=== PATIENT | female | born 1990 | race Caucasian/White ===

== ENCOUNTER 2023-06-30 22:14 | Emergency (ER) | payer SELFPAY ==
[2023-06-30] MEDS ORDERED: NA CHLORIDE 0.9% 1,000 ML ONE (22:29)
[2023-06-30] MEDS ORDERED: ONDANSETRON 4 MG/2 ML VIAL ONE ×2 (22:29→23:17)
[2023-06-30 22:33] LABS: Absolute Eosinophils 0.1 K/uL (0-0.5); Absolute Lymphocytes (CBC) 2.7 K/uL (0.7-4.9); Absolute Monocytes 0.4 K/uL (0.1-1.3); Absolute Neutrophil 6.1 K/uL (1.8-8.0); Basophils % 0.5 % (0-1.3); Eosinophils % 1.1 % (0-4.4); Hematocrit 39.8 % (36.0-45.0); Hemoglobin 13.3 g/dL (12.0-15.0); Lymphocytes % 28.6 % (15.3-44.8); MCHC 33.3 g/dL (32.0-36.0); MPV 9.8 fL (7.6-11.3); Monocytes % 4.5 % (3.3-12.3); Neutrophils % 65.3 % (41.7-73.7); Platelets 261 thou/uL (152-406); RBC Red Blood Cell Count 4.43 M/uL (3.86-4.86); Red Cell Distribution Width 13.2 % (12.1-15.2)
[2023-06-30 22:44] LABS: PT Prothrombin Time 11.6 SECONDS (9.5-12.5); PTT, Activated Partial Thromb 28.7 SECONDS (24.3-36.9); Protime INR 1.06
[2023-06-30 22:52] LABS: ALT/SGPT 21 U/L (13-56); AST/SGOT 14 U/L (15-37); Albumin/Globulin Ratio 1.1 (1.1-1.8); Alkaline Phosphatase 71 U/L (45-117); Anion Gap 10.3 mEq/L (5.0-15.0); BUN Blood Urea Nitrogen 10 mg/dL (7-18); Bicarbonate 24 mEq/L (21-32); Bilirubin Direct < 0.2 mg/dL (0-0.2); Bilirubin Indirect, Calculated 0.1 mg/dL (0.2-0.8); Bilirubin Total 0.3 mg/dL (0.2-1.0); Globulin 3.6 g/dL (2.3-3.5); Glomerular Filtration Rate 83 ml/min (=/>90); Glucose Level 124 mg/dL (74-106); Potassium 3.3 mEq/L (3.5-5.1); Protein, Total 7.6 g/dL (6.4-8.2); Sodium Level 140 mEq/L (136-145)
[2023-07-01 02:56] LABS: Specific Gravity 1.008 (1.005-1.030); Sqamous Epithelial <5 /HPF (None Seen); Urine Bacteria None Seen /HPF (<20); Urine Bilirubin NEGATIVE (Negative); Urine Blood Negative (Negative); Urine Clarity Turbid (Clear); Urine Color Colorless (Yellow); Urine Culture Reflex Order NOT NEEDED; Urine Glucose NEGATIVE (Negative); Urine Ketones NEGATIVE (Negative); Urine Microscopic Reflex YN ORDER UMIC; Urine Mucus Slight /HPF (None Seen); Urine Nitrite NEGATIVE (Negative); Urine Protein NEGATIVE (Negative); Urine RBC <5 /HPF (None Seen); Urine Urobilinogen Normal (Normal); Urine WBC <5 /HPF (<5); Urine pH 5.5 (5.0-7.0)
[2023-07-01 02:58] LABS: Barbiturates NEGATIVE (NEGATIVE); Benzodiazepines NEGATIVE (NEGATIVE); Cocaine NEGATIVE (NEGATIVE); METHAMPHETAM NEGATIVE (NEGATIVE); Methadone NEGATIVE (NEGATIVE); Opiates NEGATIVE (NEGATIVE); Phencyclidine NEGATIVE (NEGATIVE); THC Cannibis NEGATIVE (NEGATIVE)
--- NOTE | 2023-07-01 03:44 | EDPHYS ---
Physician Documentation [facility] Name: Deedee Gomez Age: 33 yrs Sex: Female : 1990 Arrival Date: 06/30/2023 Time: 22:14 Bed 16 Private MD: ED Physician Pio Garcia HPI: 06/29 23:04 This 33 yrs old Female presents to ER via EMS with complaints of etoh. rt 23:04 Patient presents to the ED with reported alcohol tox occasion, history is limited due rt to intoxication. Patient was reportedly vomiting. Unclear, alcohol she consumed. Denies other acute complaints this time, symptoms are moderate in severity, no other aggravating or alleviating factors.. Historical: - Allergies: 22:19 No Known Allergies; rv - Home Meds: 22:19 None [Active]; rv - PMHx: 22:19 None; rv - PSHx: 22:19 Unable to Obtain; rv - Immunization history:: Adult Immunizations unknown. - Infectious Disease History:: Denies. - Social history:: Smoking status: unknown Patient uses alcohol. - Family history:: not pertinent. ROS: 23:04 Unable to obtain ROS due to Intoxication, rt Exam: 23:04 Head/Face: Normocephalic, atraumatic. Chest/axilla: Normal chest wall appearance and rt motion. Nontender with no deformity. No lesions are appreciated. Cardiovascular: Regular rate and rhythm with a normal S1 and S2. No gallops, murmurs, or rubs. Normal PMI, no JVD. No pulse deficits. Respiratory: Lungs have equal breath sounds bilaterally, clear to auscultation and percussion. No rales, rhonchi or wheezes noted. No increased work of breathing, no retractions or nasal flaring. Abdomen/GI: Soft, non-tender, with normal bowel sounds. No distension or tympany. No guarding or rebound. No evidence of tenderness throughout. Skin: Warm, dry with normal turgor. Normal color with no rashes, no lesions, and no evidence of cellulitis. MS/ Extremity: Pulses equal, no cyanosis. Neurovascular intact. Full, normal range of motion. 23:04 Constitutional: The patient appears smells of alcohol, restless, 23:04 Neuro: Slurred speech, moves all 4 extremities equally, no obvious cranial nerve deficits, 23:06 ECG was reviewed by the Attending Physician. rt Vital Signs: 22:17 BP 124 / 68; Pulse 81; Resp 18; Temp 98; Pulse Ox 100% on R/A; rv 06/30 03:52 rv 03:52 patient refused to be on the monitor and check vital signs. rv MDM: 06/29 22:18 Patient medically screened. rt 06/30 06:02 Differential Diagnosis Alcohol tox occasion, drug abuse, acute psychosis. Data rt reviewed: vital signs, nurses notes, lab test result(s), EKG. Consideration of Admission/Observation Escalation of care including admission/observation considered. Patient with improving mentation, alcohol was elevated, UDS was negative. The patient is acting erratically. Patient's friend came was able to reasonably calm the patient down. She did have another episode of agitation with aggressive behaviors. She is not suicidal. She is wishing to go home. The patient's friend states that she is safe at home and will be with the patient. She is not suicidal, does not appear to be an imminent threat to herself. At this time, there are no criteria for involuntary psychiatric evaluation. Return precautions were discussed.. I considered the following discharge prescriptions or medication management in the emergency department Medications were administered in the Emergency Department. See MAR. Test considered but Not performed: CT: No trauma, focal neurodeficits, CT scan of the head not indicated. Counseling: I had a detailed discussion with the patient and/or guardian regarding the historical points, exam findings, and any diagnostic results supporting the discharge/admit diagnosis, lab results, the need for outpatient follow up, to return to the emergency department if symptoms worsen or persist or if there are any questions or concerns that arise at home. 06/29 22:22 Order name: Acetaminophen; Complete Time: 23:15 rt 06/29 22:22 Order name: Basic Metabolic Panel; Complete Time: 23:15 rt 06/29 22:22 Order name: CBC with Diff; Complete Time: 23:15 rt 06/29 22:22 Order name: ETOH Level; Complete Time: 23:15 rt 06/29 22:22 Order name: Hepatic Function; Complete Time: 23:15 rt 06/29 22:22 Order name: PT-INR; Complete Time: 23:15 rt 06/29 22:22 Order name: Ptt, Activated; Complete Time: 23:15 rt 06/29 22:22 Order name: Salicylate; Complete Time: 23:15 rt 06/29 22:22 Order name: Urinalysis w/ reflexes; Complete Time: 03:00 rt 06/29 22:22 Order name: Urine Drug Screen; Complete Time: 03:00 rt 06/29 22:22 Order name: EKG; Complete Time: 22: rt 06/29 22:22 Order name: EKG - Nurse/Tech; Complete Time: : rt 06/29 22:22 Order name: IV Saline Lock; Complete Time: : rt 06/29 22:22 Order name: Labs collected and sent; Complete Time: : rt 06/29 22:22 Order name: Suicide Screening ([place]); Complete Time: : rt EC/11 23:06 Rate is 80 beats/min. Rhythm is regular, Normal Sinus Rhythm with No ectopy. QRS [place] rt is Normal. CT interval is normal. QRS interval is normal. QT interval is normal. No Q waves. T waves are Normal. No ST changes noted. Interpreted by me. Administered Medications: 22:35 Drug: Ondansetron IVP 4 mg IVP once; over 2 minutes Route: IVP; Site: right antecubital;rv 06/30 03:53 Follow up: Response: No adverse reaction; No change in condition 06/29 22:35 Drug: NS 0.9% IV 1000 ml IV at 1 bolus Per protocol; 1000 mL bolus Route: IV; Rate: 1 rv bolus; Site: right antecubital; 06/30 03:54 Follow up: IV Status: Completed infusion; IV Intake: 1000ml 06/29 23:25 Drug: Ondansetron IVP 4 mg IVP once; over 2 minutes Route: IVP; Site: right antecubital;rv 06/30 03:54 Follow up: Response: No adverse reaction; Marked relief of symptoms rv Disposition Summary: 07/01/23 03:44 Discharge Ordered Notes: Location: Home rt Problem: new rt Symptoms: have improved rt Condition: Stable rt Diagnosis - Alcohol abuse with intoxication rt Followup: rt - With: Private Physician - When: 2 - 3 days - Reason: Discharge Instructions: - Discharge Summary Sheet rt - Alcohol Intoxication rt Forms: - Medication Reconciliation Form rt - Antibiotic Education rt - Prescription Opioid Use rt - Patient Portal Instructions rt - Leadership Thank You Letter rt Signatures: Dispatcher [employer] EDMS Sandoval rTipp RN RN rv Pio Garcia MD MD rt Corrections: (The following items were deleted from the chart) 06/29 22:23 22:22 ACETAMINOPHEN+C.LAB.BRZ ordered. EDMS EDMS 22: 22:22 BASIC METABOLIC PANEL+C.LAB.BRZ ordered. EDMS EDMS 22: 22:22 CBC+H.LAB.BRZ ordered. EDMS EDMS 22: 22:22 ETHANOL+C.LAB.BRZ ordered. EDMS EDMS 22: 22:22 HEPATIC FUNCTION+C.LAB.BRZ ordered. EDMS EDMS 22:23 22:22 PROTIME (+INR)+COAG.LAB.BRZ ordered. EDMS EDMS 22: 22:22 PTT, ACTIVATED+COAG.LAB.BRZ ordered. EDMS EDMS 22: 22:22 SALICYLATE+C.LAB.BRZ ordered. EDMS EDMS 22: 22:22 Urinalysis+U.LAB.BRZ ordered. EDMS EDMS 22:23 22:22 URINE DRUG SCREEN+UC.LAB.BRZ ordered. EDMS EDMS
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
[2023-07-01 04:10] VITALS: BP 124/68; TEMP 98; O2SAT 100
--- NOTE | 2023-07-02 13:21 | EKG ---
Test Date: 2023-06-30 Test Time: 22:43:32 Cripple Worker: RV MEASUREMENT RESULTS: Intervals: Rate: 80 SD: 190 QRSD: 88 QT: 402 QTc: 463 [place]: P: 85 SD: 190 QRS: 77 T: 57 INTERPRETIVE STATEMENTS: Normal sinus rhythm Normal ECG No previous ECG available for comparison Electronically Signed On 07-02-23 13:17:39 CDT by Stevo Lopez
== END 2023-07-01 03:54 | disposition home or self-care (01) ==
LOC: ER 22:14
DX: F10.129 Alcohol abuse with intoxication, unspecified (principal)
CPT/HCPCS: 36415; 80048; 80076; 80143; 80179; 80307; 81001; 82077; 85025; 85610; 85730; 93005; 96361; 96374; 99285; J2405; J7030